=== PATIENT | male | born 1965 | race Caucasian/White ===

== ENCOUNTER 2020-02-08 10:55 | Emergency (ER) | payer OTHER, SELFPAY ==
[2020-02-08 11:34] VITALS: BP 125/78; PULSE 65; RESP 16; TEMP 36.8; O2SAT 96; BMI 25.8
--- NOTE | 2020-02-08 12:20 | ECG_ITS ---
[facility] Test Date: 2020-02-08 Pat Name: Willie Dong Department: Room: Gender: Male [employer]ist: : [id number] Requested By: Alem Tyson Order Number: [id number] Beto MD: Jg Street M.D. Measurements Intervals [place] Rate: 65 P: 54 KS: 199 QRS: 57 QRSD: 101 T: 43 QT: 409 QTc: 426 Interpretive Statements SINUS RHYTHM LEFT ATRIAL ENLARGEMENT [-0.15mV P WAVE IN V1/V2] No previous ECG available for comparison Electronically Signed On 02-09-2020 20:25:[address] M[address]D. [id number] f
== END 2020-02-08 12:18 | disposition left against medical advice (07) ==
LOC: ER 11:04
PROVIDERS: Family Provider Nurse Practitioner Family; PCP Nurse Practitioner Family
DX: Z53.21 Procedure and treatment not carried out due to patient leaving prior to being seen by health care provider (principal)
CPT/HCPCS: 93005; 99281

== ENCOUNTER 2020-08-11 14:54 | Emergency (ER) | payer MEDICARE, SELFPAY ==
[2020-08-11 15:12] VITALS: BP 118/72; PULSE 84; RESP 16; TEMP 36.7; O2SAT 96; BMI 26.5
--- NOTE | 2020-08-11 15:31 | ED_ITS ---
HPI - General Adult General: Chief complaint: General Medical Stated complaint: SORE/SWOLLEN SPOT ON HEAD,FEELS LIKE FLUID R EAR Time Seen by Provider: 08/11/20 15:20 History of Present Illness: HPI narrative: Patient has tenderness behind the left ear which started yesterday. 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 Said the ear just feels funny on that side. Onset (ago): hour(s) Location: head Severity: mild Quality: dull Associated symptoms: Reports no associated symptoms; Deny chest pain, dyspnea, headache(s), nausea, rash or vomiting Treatments prior to arrival: none Review of Systems Const: Denies: fever(s), chills or body aches Eyes: Denies: change in vision or blurry vision ENMT: Reports: other (Left ear feels full); Denies: throat pain or nasal congestion Card: Denies: chest pain or dyspnea on exertion Resp: Denies: dyspnea, productive cough or non-productive cough GI: Denies: abdominal pain, nausea or vomiting : Denies: difficulty urinating Musc: Denies: extremity pain Skin/Breast: Reports: other (Area behind left ear is tender feels swollen); Denies: rash Neuro: Denies: headache(s) Psych: Denies: anxiety or depression Chaitanya/Lymph: Denies: easy bruising Physical Exam Const: COMMON NORMALS: no acute distress HENMT: COMMON NORMALS: normocephalic HEAD & SCALP: normocephalic FACE & SINUS: normal facial exam TYMPANIC MEMBRANE: TM normal on the left Neck/C-Spine: GENERAL: Yes normal visual inspection Skin: OTHER: Patient has what appears to be swollen lymph node mildly tender no erythema behind left ear about an inch and half behind it no other swollen lymph glands noted no obvious any bites Course Vital Signs: Vital signs: Vital Signs Temperature 98.1 F 08/11/20 15:12 Pulse Rate 84 08/11/20 15:12 Respiratory Rate 16 08/11/20 15:12 Blood Pressure 118/72 08/11/20 15:12 Pulse Oximetry 96 08/11/20 15:12 Discharge Plan Discharge Patient Disposition: Home Clinical Impression: Reactive lymphadenopathy Condition: Stable Prescriptions: New doxycycline hyclate 100 mg tablet 100 mg PO BID 7 Days Qty: 14 RF: 0 Discharge Orders: Discharge ED (Routine); Ordered 08/11/20 Ordered By: Stanislav Epstein Referrals: Levi Hutchinson FNP [Primary Care Provider] - Discharge Diet: Usual diet Discharge Activity: Resume usual activity Patient Instructions: Lymphadenopathy (ED) Activity Restrictions/Additional Instructions: Follow-up with medical provider as directed. Take medications as prescribed. Return to the ER or your medical provider if condition worsens. Please read and understand discharge instructions. If any questions ask please. Coding Level of Care Code ED Computer Lab Para Professional for Gato Vasquez
== END 2020-08-11 15:38 | disposition home or self-care (01) ==
PROVIDERS: Emergency Provider Nurse Practitioner Family; PCP Nurse Practitioner
DX: R59.1 Generalized enlarged lymph nodes (principal)
CPT/HCPCS: 99282

== ENCOUNTER 2020-08-22 06:00 | Outpatient (RCR) | payer MEDICARE, SELFPAY | END 2020-08-24 23:59 | disposition home or self-care (01) | LOC: GPT 06:00 | PROVIDERS: PCP Nurse Practitioner; Referring Provider Nurse Practitioner; Visit Provider Nurse Practitioner | DX: M54.5 Low back pain (principal) | CPT/HCPCS: 97032; 97110; 97161; 97530 ==

== ENCOUNTER 2020-08-25 06:00 | Outpatient (RCR) | payer MEDICARE, SELFPAY | END 2020-09-24 23:59 | disposition home or self-care (01) | LOC: GPT 06:00 | PROVIDERS: PCP Nurse Practitioner; Referring Provider Nurse Practitioner; Visit Provider Nurse Practitioner | DX: M54.5 Low back pain (principal) | CPT/HCPCS: 97032; 97110; 97530 ==